=== PATIENT | male | born 1995 | race Caucasian/White ===

== ENCOUNTER 2016-12-31 18:20 | Emergency (ER) | payer BC ==
[2016-12-31 18:45] VITALS: RESP 18
[2016-12-31] MEDS ORDERED: ONDANSETRON 4 MG/2 ML VIAL IVP STA (18:49)
[2016-12-31] MEDS ORDERED: SODIUM CHLORIDE 0.9% 1,000 ML IV STA (18:49)
[2016-12-31] MEDS ORDERED: MECLIZINE 12.5 MG TAB PO STA (18:49)
--- NOTE | 2016-12-31 18:54 | ED ---
Dizziness HPI - General Chief Complaint: Dizziness Stated Complaint: bloody nose/blurred vision/high blood pressure Time Seen by Provider: 12/31/16 18:44 Source: patient, RN notes reviewed Mode of arrival: ambulatory Limitations: no limitations - History of Present Illness Initial Comments: This is a 21-year-old male presents emergency Department with chief complaint of dizziness and lightheadedness with standing at work today. Patient reports that he will drink 8 beers last night. Patient reports that he did go to work today at 4 p.m. and was standing in front of the fryer and he started to feel lightheaded and dizzy. Patient reports that his her had this happen before. He states he is trying to stay hydrated today and drink plenty of water. Patient states that earlier in the day he did have a bloody nose and is feeling he's had some blurring vision. Patient proceeded did not feel anxious at the time of this is occurring. She reports the symptoms started approximately an hour and a half ago. Patient denies any recent fever, chills, chest pain, back pain, abdominal pain, nausea vomiting, numbness or tingling, dysuria or hematuria, constipation or diarrhea, headaches, or any other current symptoms - Related Data Home Medications Medication Instructions Recorded Confirmed No Known Home Medications [No 11/15/15 12/31/16 Known Home Medications] Allergies Allergy/AdvReac Type Severity Reaction Status Date / Time Sulfa (Sulfonamide Allergy Rash/Hives Verified 12/31/16 18:41 Antibiotics) Review of Systems ROS Statement: Those systems with pertinent positive or pertinent negative responses have been documented in the HPI. ROS Other: All systems not noted in ROS Statement are negative. Past Medical History Past Medical History: No Reported History History of Any Multi-Drug Resistant Organisms: None Reported Past Surgical History: No Surgical Hx Reported Past Psychological History: No Psychological Hx Reported Smoking Status: Current every day smoker Past Alcohol Use History: Heavy Past Drug Use History: Marijuana General Exam - General Exam Comments Initial Comments: Well-appearing 21-year-old male. No distress. Limitations: no limitations General appearance: alert, in no apparent distress Head exam: Present: atraumatic, normocephalic, normal inspection Eye exam: Present: normal appearance, PERRL, EOMI. Absent: scleral icterus, conjunctival injection, periorbital swelling ENT exam: Present: normal exam, mucous membranes moist Neck exam: Present: normal inspection. Absent: tenderness, meningismus, lymphadenopathy Respiratory exam: Present: normal lung sounds bilaterally. Absent: respiratory distress, wheezes, rales, rhonchi, stridor Cardiovascular Exam: Present: regular rate, normal rhythm, normal heart sounds. Absent: systolic murmur, diastolic murmur, rubs, gallop, clicks GI/Abdominal exam: Present: soft, normal bowel sounds. Absent: distended, tenderness, guarding, rebound, rigid Extremities exam: Present: normal inspection, full ROM, normal capillary refill. Absent: tenderness, pedal edema, joint swelling, calf tenderness Back exam: Present: normal inspection Neurological exam: Present: alert, oriented X3, CN II-XII intact Psychiatric exam: Present: normal affect, normal mood Skin exam: Present: warm, dry, intact, normal color. Absent: rash Course Vital Signs 12/31/16 12/31/16 18:41 20:24 Temperature 99.3 F 98.3 F Pulse Rate 100 78 Respiratory 18 18 Rate Blood Pressure 143/95 146/77 O2 Sat by Pulse 96 98 Oximetry Medical Decision Making - Medical Decision Making This is a 21-year-old male presents emergency Department with chief complaint of dizziness and lightheadedness with standing at work today. Patient reports that he will drink 8 beers last night. Patient reports that he did go to work today at 4 p.m. and was standing in front of the fryer and he started to feel lightheaded and dizzy. Patient reports that his her had this happen before. He states he is trying to stay hydrated today and drink plenty of water. Patient states that earlier in the day he did have a bloody nose and is feeling he's had some blurring vision. Patient proceeded did not feel anxious at the time of this is occurring. Patient is alert was reviewed and negative for any acute process. Patient received 2 L of fluids. Patient chest x-ray is also negative. EKG is also negative. Patient is reevaluated states that he feels much better after receiving some fluids. Patient reports that he plans to follow-up with primary care provider. Discussed that he needs to have the day off. Patient understand treatment plan will comply. - Lab Data Result diagrams: 12/31/16 18:58 12/31/16 18:58 Lab Results 0612/31/16 12/31/16 Range/Units 18:58 18:58 18:58 WBC 8.3 (3.8-10.6) k/uL RBC 5.20 (4.30-5.90) m/uL Hgb 16.0 (13.0-17.5) gm/dL Hct 47.5 (39.0-53.0) % MCV 91.2 (80.0-100.0) fL MCH 30.7 (25.0-35.0) pg MCHC 33.7 (31.0-37.0) g/dL RDW 13.3 (11.5-15.5) % Plt Count 274 (150-450) k/uL Neutrophils % 61 % Lymphocytes % 28 % Monocytes % 5 % Eosinophils % 2 % Basophils % 2 % Neutrophils # 5.0 (1.3-7.7) k/uL Lymphocytes # 2.3 (1.0-4.8) k/uL Monocytes # 0.4 (0-1.0) k/uL Eosinophils # 0.2 (0-0.7) k/uL Basophils # 0.2 (0-0.2) k/uL Sodium 141 (137-145) mmol/L Potassium 3.9 (3.5-5.1) mmol/L Chloride 104 (98-107) mmol/L Carbon Dioxide 21 L (22-30) mmol/L Anion Gap 16 mmol/L BUN 6 L (9-20) mg/dL Creatinine 0.71 (0.66-1.25) mg/dL Est GFR (MDRD) Af Amer >60 (>60 ml/min/1.73 sqM) Est GFR (MDRD) Non-Af >60 (>60 ml/min/1.73 sqM) Glucose 95 (74-99) mg/dL Calcium 9.9 (8.4-10.2) mg/dL Total Bilirubin 0.9 (0.2-1.3) mg/dL AST 28 (17-59) U/L ALT 29 (21-72) U/L Alkaline Phosphatase 75 (38-126) U/L Troponin I <0.012 (0.000-0.034) ng/mL Total Protein 7.7 (6.3-8.2) g/dL Albumin 5.0 (3.5-5.0) g/dL Urine Color Urine Appearance (Clear) Urine pH (5.0-8.0) Ur Specific [place] (1.001-1.035) Urine Protein (Negative) Urine Glucose (UA) (Negative) Urine Ketones (Negative) Urine Blood (Negative) Urine Nitrite (Negative) Urine Bilirubin (Negative) Urine Urobilinogen (<2.0) mg/dL Ur Leukocyte Esterase (Negative) Urine RBC (0-5) /hpf Urine WBC (0-5) /hpf Urine Mucus (None) /hpf Urine Opiates Screen (NotDetected) Ur Oxycodone Screen (NotDetected) Urine Methadone Screen (NotDetected) Ur Propoxyphene Screen (NotDetected) Ur Barbiturates Screen (NotDetected) U Tricyclic Antidepress (NotDetected) Ur Phencyclidine Scrn (NotDetected) Ur Amphetamines Screen (NotDetected) U Methamphetamines Scrn (NotDetected) U Benzodiazepines Scrn (NotDetected) Urine Cocaine Screen (NotDetected) U Marijuana (THC) Screen (NotDetected) 12/31/16 Range/Units 18:58 WBC (3.8-10.6) k/uL RBC (4.30-5.90) m/uL Hgb (13.0-17.5) gm/dL Hct (39.0-53.0) % MCV (80.0-100.0) fL MCH (25.0-35.0) pg MCHC (31.0-37.0) g/dL RDW (11.5-15.5) % Plt Count (150-450) k/uL Neutrophils % % Lymphocytes % % Monocytes % % Eosinophils % % Basophils % % Neutrophils # (1.3-7.7) k/uL Lymphocytes # (1.0-4.8) k/uL Monocytes # (0-1.0) k/uL Eosinophils # (0-0.7) k/uL Basophils # (0-0.2) k/uL Sodium (137-145) mmol/L Potassium (3.5-5.1) mmol/L Chloride (98-107) mmol/L Carbon Dioxide (22-30) mmol/L Anion Gap mmol/L BUN (9-20) mg/dL Creatinine (0.66-1.25) mg/dL Est GFR (MDRD) Af Amer (>60 ml/min/1.73 sqM) Est GFR (MDRD) Non-Af (>60 ml/min/1.73 sqM) Glucose (74-99) mg/dL Calcium (8.4-10.2) mg/dL Total Bilirubin (0.2-1.3) mg/dL AST (17-59) U/L ALT (21-72) U/L Alkaline Phosphatase (38-126) U/L Troponin I (0.000-0.034) ng/mL Total Protein (6.3-8.2) g/dL Albumin (3.5-5.0) g/dL Urine Color Yellow Urine Appearance Clear (Clear) Urine pH 6.0 (5.0-8.0) Ur Specific [place] 1.015 (1.001-1.035) Urine Protein 1+ H (Negative) Urine Glucose (UA) Negative (Negative) Urine Ketones 1+ H (Negative) Urine Blood Small H (Negative) Urine Nitrite Negative (Negative) Urine Bilirubin Negative (Negative) Urine Urobilinogen <2.0 (<2.0) mg/dL Ur Leukocyte Esterase Negative (Negative) Urine RBC 5 (0-5) /hpf Urine WBC 1 (0-5) /hpf Urine Mucus Rare H (None) /hpf Urine Opiates Screen Not Detected (NotDetected) Ur Oxycodone Screen Not Detected (NotDetected) Urine Methadone Screen Not Detected (NotDetected) Ur Propoxyphene Screen Not Detected (NotDetected) Ur Barbiturates Screen Not Detected (NotDetected) U Tricyclic Antidepress Not Detected (NotDetected) Ur Phencyclidine Scrn Not Detected (NotDetected) Ur Amphetamines Screen Not Detected (NotDetected) U Methamphetamines Scrn Not Detected (NotDetected) U Benzodiazepines Scrn Not Detected (NotDetected) Urine Cocaine Screen Not Detected (NotDetected) U Marijuana (THC) Screen Detected H (NotDetected) 12/31/16 19:24 EKG shows normal sinus rhythm with possible sinus arrhythmia. Hematuria by 3 bpm. : 50 mg. QRS duration 84. QT QTc is 3:30/450. No evidence of significant T- wave inversion. - Radiology Data Radiology results: report reviewed Chest x-rays be negative for any acute process. Disposition Clinical Impression: Light-headed feeling Disposition: HOME SELF-CARE Condition: Good Instructions: Dizziness (ED) Additional Instructions: Rest, increase fluids. Follow-up with her primary care physician. Return to the emergency department if any alarming signs or symptoms occur. Referrals: Quinton Escalante III, MD [Primary Care Provider] - 1-2 days Time of Disposition: 20:14
[2016-12-31 19:14] LABS: Basophils # (A) 0.2 k/uL (0-0.2); Basophils % (A) 2 %; CH 30.8; CHCM 33.8; Eosinophils # (A) 0.2 k/uL (0-0.7); Eosinophils % (A) 2 %; HCT 47.5 % (39.0-53.0); HDW 2.13; Luc % (Auto) 2; Lymphocytes # (A) 2.3 k/uL (1.0-4.8); Lymphocytes % (A) 28 %; MCH 30.7 pg (25.0-35.0); MCHC 33.7 g/dL (31.0-37.0); MCV 91.2 fL (80.0-100.0); Mean Platelet Volume 7.1; Monocytes # (A) 0.4 k/uL (0-1.0); Monocytes % (A) 5 %; Neutrophils % (A) 61 %; RDW 13.3 % (11.5-15.5); WBC 8.3 k/uL (3.8-10.6); WBC (Perox) 8.08
[2016-12-31 19:23] LABS: Appearance,Urine Clear (Clear); Bilirubin,Urine Negative (Negative); Glucose,Urine (UA) Negative (Negative); Ketones,Urine 1+ (Negative); Leukocyte Esterase,Urine Negative (Negative); Mucus,Urine Rare /hpf; Nitrite,Urine Negative (Negative); Particle Count 2939; Protein,Urine 1+ (Negative); RBC,Urine 5 /hpf (0-5); Specific Gravity,Urine 1.015 (1.001-1.035); UA Billing (MACRO vs. MICRO) MICRO; Urobilinogen,Urine <2.0 mg/dL (<2.0); WBC,Urine 1 /hpf (0-5)
[2016-12-31 19:24] LABS: ALT 29 U/L (21-72); AST 28 U/L (17-59); Alkaline Phosphatase 75 U/L (38-126); Anion Gap 16 mmol/L; Blood Urea Nitrogen 6 mg/dL (9-20); Calcium 9.9 mg/dL (8.4-10.2); Carbon Dioxide 21 mmol/L (22-30); Chloride 104 mmol/L (98-107); Glucose 95 mg/dL (74-99); Non-African American GFR(MDRD) >60 (>60 ml/min/1.73 sqM); Potassium 3.9 mmol/L (3.5-5.1); Sodium 141 mmol/L (137-145); Total Bilirubin 0.9 mg/dL (0.2-1.3); Total Protein 7.7 g/dL (6.3-8.2)
--- NOTE | 2016-12-31 19:25 | XR ---
EXAMINATION TYPE: XR chest 2V DATE OF EXAM: 12/31/2016 7:21 PM COMPARISON: NONE HISTORY: Dizziness TECHNIQUE: Frontal and lateral views of the chest are obtained. FINDINGS: Heart and mediastinum are normal. Lungs are clear. Diaphragm is normal. Bony thorax appear s normal. IMPRESSION: Normal chest
[2016-12-31 20:26] VITALS: BP 146/77; PULSE 78; TEMP 98.3
== END 2016-12-31 20:24 | disposition home or self-care (01) ==
LOC: EC 18:20
DX: R42 Dizziness and giddiness (principal); H53.8 Other visual disturbances; R04.0 Epistaxis; F17.200 Nicotine dependence, unspecified, uncomplicated; Z88.2 Allergy status to sulfonamides; Z53.20 Procedure and treatment not carried out because of patient's decision for unspecified reasons
CPT/HCPCS: 36415; 71020; 80053; 80306; 81001; 84484; 85025; 93005; 96360; 99284

== ENCOUNTER 2017-01-21 14:39 | Inpatient (IN) | payer BC ==
[2017-01-21] MEDS ORDERED: FOLIC ACID 1 MG TAB PO STA (15:03)
[2017-01-21] MEDS ORDERED: THIAMINE 100 MG/ML 2 ML VIAL IM STA ×2 (15:03→17:30)
[2017-01-21] MEDS ORDERED: MULTIVITAMINS, THERA 1 EACH TAB PO STA (15:03)
[2017-01-21] MEDS ORDERED: SODIUM CHLORIDE 0.9% 1,000 ML IV STA ×2 (15:03)
[2017-01-21] MEDS ORDERED: DIAZEPAM 5 MG TAB PO STA ×2 (15:10→16:15)
[2017-01-21 15:29] LABS: Basophils # (A) 0.2 k/uL (0-0.2); Basophils % (A) 1 %; CH 30.6; CHCM 33.3; Eosinophils # (A) 0.1 k/uL (0-0.7); Eosinophils % (A) 1 %; HCT 49.3 % (39.0-53.0); HDW 2.09; HGB 16.1 gm/dL (13.0-17.5); Luc # (Auto) 0.31; Luc % (Auto) 3; Lymphocytes # (A) 2.3 k/uL (1.0-4.8); Lymphocytes % (A) 21 %; MCH 30.2 pg (25.0-35.0); MCHC 32.7 g/dL (31.0-37.0); MCV 92.3 fL (80.0-100.0); Mean Platelet Volume 7.3; Monocytes # (A) 0.7 k/uL (0-1.0); Monocytes % (A) 6 %; Neutrophils # (A) 7.4 k/uL (1.3-7.7); Neutrophils % (A) 67 %; RBC 5.34 m/uL (4.30-5.90); RDW 13.1 % (11.5-15.5); WBC (Perox) 10.25
[2017-01-21 15:39] LABS: ALT 23 U/L (21-72); AST 30 U/L (17-59); Alkaline Phosphatase 107 U/L (38-126); Amylase 54 U/L (30-110); Anion Gap 21 mmol/L; Blood Urea Nitrogen 10 mg/dL (9-20); Calcium 9.8 mg/dL (8.4-10.2); Carbon Dioxide 19 mmol/L (22-30); Chloride 101 mmol/L (98-107); Glucose 87 mg/dL (74-99); Non-African American GFR(MDRD) >60 (>60 ml/min/1.73 sqM); Potassium 3.7 mmol/L (3.5-5.1); Sodium 141 mmol/L (137-145); Total Bilirubin 0.8 mg/dL (0.2-1.3); Total Protein 8.4 g/dL (6.3-8.2)
[2017-01-21] MEDS ORDERED: LORazepam 2 MG/ML SYRINGE IV PRN ×2 (17:30)
--- NOTE | 2017-01-21 17:30 | ED ---
Alcohol HPI - General Chief Complaint: Alcohol Stated Complaint: alcohol withdrawal/sent by [facility] Time Seen by Provider: 01/21/17 14:52 Source: patient Mode of arrival: ambulatory Limitations: no limitations - History of Present Illness Initial Comments: ) Drinking quite heavily for the last month and a half he was seen by at a urgent care this HEART rate was quite fast and respiratory rate was fast and thought he was sent withdrawals presented to the ER in year. Bedside he been drinking about a pint to 2 pints every day or if he has a day for the last month and is quite shaky hasn't had any alcohol for the last 12 hours him a no other complaints. He does have a bit of a rash on his lower extremities. - Related Data Home Medications Medication Instructions Recorded Confirmed No Known Home Medications [No 11/15/15 01/21/17 Known Home Medications] Allergies Allergy/AdvReac Type Severity Reaction Status Date / Time Sulfa (Sulfonamide Allergy Rash/Hives Verified 01/21/17 15:17 Antibiotics) Review of Systems ROS Statement: Those systems with pertinent positive or pertinent negative responses have been documented in the HPI. ROS Other: All systems not noted in ROS Statement are negative. Past Medical History Past Medical History: No Reported History History of Any Multi-Drug Resistant Organisms: None Reported Past Surgical History: No Surgical Hx Reported Past Psychological History: No Psychological Hx Reported Smoking Status: Current every day smoker Past Alcohol Use History: Abuse, Daily, Heavy Past Drug Use History: Cocaine, Marijuana General Exam - General Exam Comments Initial Comments: General: The patient is awake and alert, in no distress, and does not appear acutely ill. GCS 15. He does look bit shaky Skin: Skin is warm and dry noticed a rash on his legs, its warm 0.5-1 mm in size some areas is bit raised and is bit erythematous Eye: Pupils are equal, round and reactive to light, extra-ocular movements are intact; there is normal conjunctiva bilaterally. Ears, nose, mouth and throat: There are moist mucous membranes and no oral lesions. Neck: The neck is supple, there is no tenderness or JVD. Cardiovascular: There is a regular rate and rhythm. No murmur, rub or gallop is appreciated. Respiratory: To auscultation bilateral, no wheezing no rhonchi no distress respiratory rivas noticed Gastrointestinal: Soft, non-distended, non-tender abdomen without masses or organomegaly noted. There is no rebound or guarding present. Bowel sounds are unremarkable. Back: There is no tenderness to palpation in the midline. There is no obvious deformity. Musculoskeletal: Normal ROM, no tenderness, There is no pedal edema. There is no calf tenderness or swelling. No cords were appreciated. Neurological: CN II-XII intact, Cranial nerves III through XII are intact. There are no obvious motor or sensory deficits. Coordination appears grossly intact. Speech is normal. Psychiatric: Cooperative, appropriate mood & affect, normal judgment. Denies any suicidal or homicidal ideation Limitations: no limitations Course Vital Signs 01/21/17 01/21/17 01/21/17 14:42 15:10 15:32 Pulse Rate 130 H 135 H 113 H Respiratory 20 20 Rate Blood Pressure 162/94 154/88 O2 Sat by Pulse 99 98 Oximetry 01/21/17 16:10 Pulse Rate 103 H Respiratory 20 Rate Blood Pressure 137/76 O2 Sat by Pulse 99 Oximetry Patient was reassessed at 1525 and his labs were discussed with him as well as his mother considering his tachycardia he was advised to stay in the hospital to avoid any chest education and counseling was done about the patient is swollen Medical Decision Making - Lab Data Result diagrams: 01/21/17 15:05 01/21/17 15:05 Lab Results 01/21/17 01/21/17 01/21/17 Range/Units 15:05 15:05 16:00 WBC 11.0 H (3.8-10.6) k/uL RBC 5.34 (4.30-5.90) m/uL Hgb 16.1 (13.0-17.5) gm/dL Hct 49.3 (39.0-53.0) % MCV 92.3 (80.0-100.0) fL MCH 30.2 (25.0-35.0) pg MCHC 32.7 (31.0-37.0) g/dL RDW 13.1 (11.5-15.5) % Plt Count 296 (150-450) k/uL Neutrophils % 67 % Lymphocytes % 21 % Monocytes % 6 % Eosinophils % 1 % Basophils % 1 % Neutrophils # 7.4 (1.3-7.7) k/uL Lymphocytes # 2.3 (1.0-4.8) k/uL Monocytes # 0.7 (0-1.0) k/uL Eosinophils # 0.1 (0-0.7) k/uL Basophils # 0.2 (0-0.2) k/uL Sodium 141 (137-145) mmol/L Potassium 3.7 (3.5-5.1) mmol/L Chloride 101 (98-107) mmol/L Carbon Dioxide 19 L (22-30) mmol/L Anion Gap 21 mmol/L BUN 10 (9-20) mg/dL Creatinine 0.77 (0.66-1.25) mg/dL Est GFR (MDRD) Af Amer >60 (>60 ml/min/1.73 sqM) Est GFR (MDRD) Non-Af >60 (>60 ml/min/1.73 sqM) Glucose 87 (74-99) mg/dL Calcium 9.8 (8.4-10.2) mg/dL Total Bilirubin 0.8 (0.2-1.3) mg/dL AST 30 (17-59) U/L ALT 23 (21-72) U/L Alkaline Phosphatase 107 (38-126) U/L Total Protein 8.4 H (6.3-8.2) g/dL Albumin 5.4 H (3.5-5.0) g/dL Amylase 54 (30-110) U/L Lipase 88 (23-300) U/L Urine Opiates Screen Not Detected (NotDetected) Ur Oxycodone Screen Not Detected (NotDetected) Urine Methadone Screen Not Detected (NotDetected) Ur Propoxyphene Screen Not Detected (NotDetected) Ur Barbiturates Screen Not Detected (NotDetected) U Tricyclic Antidepress Not Detected (NotDetected) Ur Phencyclidine Scrn Not Detected (NotDetected) Ur Amphetamines Screen Not Detected (NotDetected) U Methamphetamines Scrn Not Detected (NotDetected) U Benzodiazepines Scrn Detected H (NotDetected) Urine Cocaine Screen Not Detected (NotDetected) U Marijuana (THC) Screen Detected H (NotDetected) Disposition Clinical Impression: Alcohol withdrawal Disposition: ADMITTED IP TO THIS [facility] Condition: Good Referrals: Jeet King MD [Primary Care Provider] - 1-2 days
[2017-01-21] MEDS ORDERED: SODIUM CHLORIDE 0.9% 1,000 ML IV ONE (17:31)
[2017-01-21] MEDS: LORazepam 2 MG/ML SYRINGE IV PRN ×2 (18:19→22:03)
[2017-01-21] MEDS: THIAMINE 100 MG TAB PO SCH (19:03)
[2017-01-21] MEDS: NICOTINE 21MG/24HR PATCH TRANSDERM SCH (20:33)
[2017-01-21] MEDS: ACETAMINOPHEN TAB 325 MG TAB PO PRN (21:10)
[2017-01-22] MEDS: ACETAMINOPHEN TAB 325 MG TAB PO PRN ×2 (05:11→13:29)
[2017-01-22] MEDS: NICOTINE 21MG/24HR PATCH TRANSDERM SCH (09:20)
[2017-01-22] MEDS: THIAMINE 100 MG TAB PO SCH ×2 (13:29→16:55)
[2017-01-22] MEDS ORDERED: ALPRAZolam 0.25 MG TAB PO PRN (15:17)
[2017-01-22] MEDS ORDERED: TEMAZEPAM 15 MG CAP PO PRN (15:17)
--- NOTE | 2017-01-22 18:22 | XR ---
EXAMINATION TYPE: XR chest 1V portable DATE OF EXAM: 01/22/2017 COMPARISON: 12/31/2016 HISTORY: Pneumonia chest pain TECHNIQUE: Single frontal view of the chest is obtained. FINDINGS: Heart and mediastinum are normal. Lungs are clear. Diaphragm is normal. There are chest le ads. IMPRESSION: Normal chest. No change.
[2017-01-22] MEDS: HEPARIN SODIUM,PORCINE 5,000 UNIT/ML 1 ML VIAL SQ SCH (22:45)
[2017-01-22 23:26] VITALS: RESP 16
--- NOTE | 2017-01-23 07:04 | HP ---
DATE OF ADMISSION: I am covering for Dr. King. CHIEF COMPLAINT: Alcohol withdrawal seizures. HISTORY OF PRESENT ILLNESS: This 21-year-old gentleman with a past history of EtOH abuse, previous history of cocaine and marijuana abuse being followed by Dr. King in the outpatient setting. Apparently went to rehab previously, but subsequently the patient relapsed and was severely drinking up to 2 pints and presented urgent care center with tachycardia and tachypnea. Patient was sent over to [facility] for further evaluation. The patient was started on alcohol withdrawal protocol and patient is closely monitored. There is no history of any fever, rigors. No history of headache, loss of consciousness or seizures. PAST MEDICAL HISTORY: History of EtOH, history of cocaine and marijuana. Medications prior to admission include medications: None. ALLERGIES: SULFA. FAMILY HISTORY: No history of any heart disease or strokes in the family. SOCIAL HISTORY: As mentioned earlier. REVIEW OF SYSTEMS: ENT: No diminishing hearing. No diminished vision. CARDIOVASCULAR: As mentioned earlier. RESPIRATORY: As mentioned earlier. GI: No nausea. : No dysuria. NERVOUS SYSTEM: No numbness or weakness. ALLERGY/IMMUNOLOGY: No history of asthma. MUSCULOSKELETAL: As mentioned earlier. HEMATOLOGY/ONCOLOGY: No history of anemia. ENDOCRINE: No history of diabetes mellitus or hypothyroidism. CONSTITUTIONAL: As mentioned earlier. DERMATOLOGY: Negative. RHEUMATOLOGY: Negative. PSYCHIATRY: As mentioned earlier. PHYSICAL EXAMINATION: The patient is alert and oriented x3. Pulse is 73, blood pressure 151/89, respirations 16, temperature 97.4, pulse ox 99% on room air. HEENT: Conjunctivae normal. NECK: No jugular venous distention. CARDIOVASCULAR: S1 and S2, muffled. RESPIRATORY: Breath sounds diminished at the bases. No rhonchi, no crackles. ABDOMEN: Soft, nontender. No mass palpable. LEGS: No edema, no swelling. NERVOUS SYSTEM: Higher function as mentioned. Moves all 4 limbs. LYMPHATICS: No lymphadenopathy of neck, axillae or groin. SKIN: No ulcers, rashes or bleeding. LABS: WBC 11, hemoglobin 16.1. Albumin is 5.4. ASSESSMENT: 1. Alcohol withdrawal syndrome and early delirium tremens. 2. History of EtOH. 3. History of polysubstance abuse including marijuana and as well as cocaine. 4. Decreased CO2. 5. Increased WBC. RECOMMENDATIONS AND DISCUSSION: This 21-year-old gentleman presented with multiple complex medical problems, will monitor the patient closely. Continue the current medications, CIWA protocol. Continue with vitamin supplementation. The patient will require alcohol and substance abuse counseling and rehabilitation and outpatient followup with psychiatry also. The prognosis is guarded. Further recommendations to follow. KELD
[2017-01-23] MEDS ORDERED: PANTOPRAZOLE 40 MG TABLET PO SCH (07:30)
[2017-01-23 07:32] LABS: Basophils # (A) 0.1 k/uL (0-0.2); Basophils % (A) 1 %; CH 30.6; CHCM 32.9; Eosinophils # (A) 0.2 k/uL (0-0.7); Eosinophils % (A) 4 %; HCT 51.8 % (39.0-53.0); HDW 2.05; HGB 16.5 gm/dL (13.0-17.5); Luc # (Auto) 0.13; Luc % (Auto) 2; Lymphocytes # (A) 1.9 k/uL (1.0-4.8); Lymphocytes % (A) 35 %; MCH 29.7 pg (25.0-35.0); MCHC 31.9 g/dL (31.0-37.0); MCV 93.2 fL (80.0-100.0); Mean Platelet Volume 7.5; Monocytes # (A) 0.4 k/uL (0-1.0); Monocytes % (A) 7 %; Neutrophils # (A) 2.7 k/uL (1.3-7.7); Neutrophils % (A) 50 %; RBC 5.56 m/uL (4.30-5.90); RDW 12.8 % (11.5-15.5); WBC 5.4 k/uL (3.8-10.6); WBC (Perox) 5.12
[2017-01-23 07:54] LABS: Anion Gap 14 mmol/L; Blood Urea Nitrogen 6 mg/dL (9-20); Calcium 10.2 mg/dL (8.4-10.2); Carbon Dioxide 25 mmol/L (22-30); Chloride 101 mmol/L (98-107); Glucose 94 mg/dL (74-99); Non-African American GFR(MDRD) >60 (>60 ml/min/1.73 sqM); Potassium 4.1 mmol/L (3.5-5.1); Sodium 140 mmol/L (137-145)
[2017-01-23 07:59] VITALS: BP 125/78; PULSE 60; TEMP 96.3
[2017-01-23] MEDS: HEPARIN SODIUM,PORCINE 5,000 UNIT/ML 1 ML VIAL SQ SCH (08:16)
[2017-01-23] MEDS: NICOTINE 21MG/24HR PATCH TRANSDERM SCH (08:16)
[2017-01-23] MEDS: ACETAMINOPHEN TAB 325 MG TAB PO PRN (08:22)
[2017-01-23] MEDS: LORazepam 2 MG/ML SYRINGE IV PRN (11:24)
[2017-01-23] MEDS: THIAMINE 100 MG TAB PO SCH (11:25)
[2017-01-23] MEDS ORDERED: FOLIC ACID 1 MG TAB PO SCH (12:00)
[2017-01-23] MEDS ORDERED: MULTIVITAMINS, THERA 1 EACH TAB PO SCH (12:00)
== END 2017-01-23 12:51 | disposition home or self-care (01) | DRG 897 ==
LOC: EC 14:39 → 4MS4W 17:31
PROVIDERS: ADMIT Family Medicine; ATTEND Family Medicine
DX: F10.231 Alcohol dependence with withdrawal delirium (principal); F14.10 Cocaine abuse, uncomplicated; R56.9 Unspecified convulsions; Z88.2 Allergy status to sulfonamides
CPT/HCPCS: 36415; 71010; 80048; 80053; 80306; 82075; 82150; 83690; 85025; 96361; 96372; 96374; 99285

== ENCOUNTER → 2018-01-17 | Outpatient (CLI) | payer BC | END | disposition home or self-care (01) | LOC: RADECHMAIN 12:30 | PROVIDERS: ATTEND Family Medicine | DX: I47.1 Supraventricular tachycardia (principal); I49.8 Other specified cardiac arrhythmias | CPT/HCPCS: 93225; 93226 ==

== ENCOUNTER 2020-09-03 07:43 | Emergency (ER) | payer BC, OTHER ==
[2020-09-03 07:50] VITALS: RESP 18; TEMP 98.7
[2020-09-03] MEDS ORDERED: FAMOTIDINE 20 MG/2 ML VIAL IV STA (07:57)
[2020-09-03] MEDS ORDERED: SODIUM CHLORIDE 0.9% 1,000 ML IV STA (07:57)
[2020-09-03] MEDS ORDERED: methylPREDNISolone SOD SUCCI 125 MG/2 ML VIAL IV STA (07:57)
[2020-09-03] MEDS ORDERED: diphenhydrAMINE 50 MG/ML 1 ML VIAL IVP STA (07:57)
--- NOTE | 2020-09-03 08:02 | ED ---
Allergic Reaction HPI - General Chief complaint: Allergic Reaction Stated complaint: Allergic Reaction Time Seen by Provider: 09/03/20 07:51 Source: patient, RN notes reviewed Mode of arrival: ambulatory Limitations: no limitations - History of Present Illness Initial Comments: She is a 24-year-old male that presented to the emergency department with his girlfriend complaining of an ALLERGIC reaction. He noted that he recently just got to rehab for alcohol yesterday. He did not that when he was in rehab he was using some cheap [employer] so the last day or 2. After using the soap is when he noticed that his groin broke out in hives became itchy puffy. Since yesterday his hands ears have also become red, itchy. He noted that is not so much as painful as it is more uncomfortable with a severe age. He said the reason he came is because it is been spreading proximally. He denied any other contact with any abnormal substance such as laundry detergent body wash environmental other than the soap he used in rehab. He denied any shortness of breath, chest pain, lightheadedness, nausea, vomiting, consultation, diarrhea, fever, fatigue, chills. - Related Data Previous Rx's Medication Instructions Recorded Folic Acid 1 mg PO DAILY@1200 #30 tab 01/23/17 LORazepam [Ativan] 0.5 mg PO TID PRN #20 tab 01/23/17 Multivitamins, Thera [Multivitamin 1 each PO DAILY@1200 #30 tab 01/23/17 (formulary)] Nicotine 21Mg/24Hr Patch [Habitrol] 1 patch TRANSDERM DAILY #30 patch 01/23/17 Thiamine [Vitamin B-1] 100 mg PO DAILY #30 tab 01/23/17 Famotidine [Pepcid] 20 mg PO DAILY 14 Days #14 tablet 09/03/20 Hydrocortisone Cream 1 applic TOPICAL BID 14 Days #120 09/03/20 [Hydrocortisone 2.5% Cream] gm diphenhydrAMINE [Benadryl] 25 mg PO QID 14 Days #56 capsule 09/03/20 Allergies Allergy/AdvReac Type Severity Reaction Status Date / Time Sulfa (Sulfonamide Allergy Rash/Hives Verified 09/03/20 07:44 Antibiotics) Review of Systems ROS Statement: Those systems with pertinent positive or pertinent negative responses have been documented in the HPI. ROS Other: All systems not noted in ROS Statement are negative. Past Medical History Past Medical History: GERD/Reflux History of Any Multi-Drug Resistant Organisms: None Reported Past Surgical History: No Surgical Hx Reported Past Anesthesia/Blood Transfusion Reactions: No Reported Reaction Past Psychological History: No Psychological Hx Reported Smoking Status: Current every day smoker Past Alcohol Use History: None Reported, Abuse, Daily, Heavy Past Drug Use History: Cocaine, Marijuana - Past Family History Mother Family Medical History: No Reported History General Exam Limitations: no limitations General appearance: alert, in no apparent distress Head exam: Present: atraumatic, normocephalic, normal inspection Eye exam: Present: normal appearance, PERRL, EOMI. Absent: scleral icterus, conjunctival injection, periorbital swelling ENT exam: Present: normal exam, mucous membranes moist Neck exam: Present: normal inspection. Absent: tenderness, meningismus, lymphadenopathy Respiratory exam: Present: normal lung sounds bilaterally. Absent: respiratory distress, wheezes, rales, rhonchi, stridor Cardiovascular Exam: Present: regular rate, normal rhythm, normal heart sounds. Absent: systolic murmur, diastolic murmur, rubs, gallop, clicks GI/Abdominal exam: Present: soft, normal bowel sounds. Absent: distended, tenderness, guarding, rebound, rigid Extremities exam: Present: normal inspection, full ROM, normal capillary refill. Absent: tenderness, pedal edema, joint swelling, calf tenderness Back exam: Present: normal inspection, rash noted (Urticaria upper back) Neurological exam: Present: alert, oriented X3, CN II-XII intact Psychiatric exam: Present: normal affect, normal mood Skin exam: Present: warm, dry, intact, normal color, rash (Ears: Erythema, urticaria, bilateral hands: Erythema and urticaria spreading proximally up her arms, groin: Multiple patches of urticaria down thigh to knee.) Course Vital Signs 09/03/20 07:45 Temperature 98.7 F Pulse Rate 102 H Respiratory 18 Rate Blood Pressure 128/75 O2 Sat by Pulse 98 Oximetry Medical Decision Making - Medical Decision Making 24-year-old male complaining of ALLERGIC reaction status post discharge from rehab for alcohol. Benadryl, Pepcid, methylprednisone given. Patient did not complain of any shortness of breath or chest pain. Case discussed with Dr. Ngo, was decided that patient to discharge home. Disposition Clinical Impression: Allergic reaction, Urticaria Disposition: HOME SELF-CARE Condition: Stable Instructions (If sedation given, give patient instructions): Urticaria (ED), General Allergic Reaction (ED) Additional Instructions: Please return to the Emergency Department if symptoms worsen or any other concerns. Take medications as directed Use gentle soaps and unscented soaps to wash body including clothes. Follow-up with primary care in 1-2 days. Is patient prescribed a controlled substance at d/c from ED?: No Referrals: Jeet King MD [Primary Care Provider] - 1-2 days Time of Disposition: 08:53
[2020-09-03 09:05] VITALS: BP 132/76; PULSE 98
== END 2020-09-03 09:06 | disposition home or self-care (01) ==
LOC: EC 07:43
DX: L50.0 Allergic urticaria (principal); F17.200 Nicotine dependence, unspecified, uncomplicated; Z88.2 Allergy status to sulfonamides
CPT/HCPCS: 99283; 96374; 96375 ×2; 96361; J1200; J2930

== ENCOUNTER 2020-09-06 09:12 | Emergency (ER) | payer BC ==
[2020-09-06] MEDS ORDERED: diphenhydrAMINE 50 MG/ML 1 ML VIAL IVP STA (09:29)
[2020-09-06] MEDS ORDERED: methylPREDNISolone SOD SUCCI 125 MG/2 ML VIAL IV STA (09:29)
[2020-09-06] MEDS ORDERED: FAMOTIDINE 20 MG/2 ML VIAL IV STA (09:29)
[2020-09-06] MEDS ORDERED: ACETAMINOPHEN TAB 325 MG TAB PO STA (09:30)
--- NOTE | 2020-09-06 09:45 | ED ---
General Adult HPI - General Chief complaint: Shortness of Breath Stated complaint: Revisit - allergic rxn Time Seen by Provider: 09/06/20 09:22 Source: patient, RN notes reviewed Mode of arrival: ambulatory Limitations: no limitations - History of Present Illness Initial comments: This is a 24-year-old male presents emergency Department with chief complaint ALLERGIC reaction. Patient states that seen here few days ago after having hives from soaps at [place]. Patient states he went home his return to his normal soaps and detergents states that he still having hives. He occasionally has been taking Benadryl. He was not sent home on steroids. Patient states that he sits rashes groin which is now resolved states that he has hives on his back somewhat is chest upper and lower extremities. Patient also states she's developed a recent cough, fever, blood cell to nausea vomiting with no abdominal pain. Patient has not taken any recent Tylenol Motrin. Patient states he was on trazodone wires at [place] but is not taking that medication currently. Patient states that he is taking some antiacid medications but states she's been taken this for a long period of time. - Related Data Home Medications Medication Instructions Recorded Confirmed Acetaminophen Tab [Tylenol Tab] 1,000 mg PO Q6H PRN 09/06/20 09/06/20 Famotidine [Pepcid] 20 mg PO DAILY PRN 09/06/20 09/06/20 Ibuprofen [Motrin Ib] 400 mg PO Q6H PRN 09/06/20 09/06/20 Multivitamins, Thera [Multivitamin 1 tab PO DAILY 09/06/20 09/06/20 (formulary)] Pantoprazole [Protonix] 40 mg PO DAILY PRN 09/06/20 09/06/20 diphenhydrAMINE [Benadryl] 25 - 50 mg PO QID PRN 09/06/20 09/06/20 Previous Rx's Medication Instructions Recorded Hydrocortisone Cream 1 applic TOPICAL BID 14 Days #120 09/03/20 [Hydrocortisone 2.5% Cream] gm Famotidine [Pepcid] 20 mg PO BID #14 tablet 09/06/20 diphenhydrAMINE [Benadryl] 50 mg PO QID PRN #20 capsule 09/06/20 predniSONE 50 mg PO DAILY #5 tab 09/06/20 Allergies Allergy/AdvReac Type Severity Reaction Status Date / Time Sulfa (Sulfonamide Allergy Rash/Hives Verified 09/06/20 09:46 Antibiotics) Review of Systems ROS Statement: Those systems with pertinent positive or pertinent negative responses have been documented in the HPI. ROS Other: All systems not noted in ROS Statement are negative. Past Medical History Past Medical History: GERD/Reflux History of Any Multi-Drug Resistant Organisms: None Reported Past Surgical History: No Surgical Hx Reported Past Anesthesia/Blood Transfusion Reactions: No Reported Reaction Past Psychological History: No Psychological Hx Reported Smoking Status: Current every day smoker Past Alcohol Use History: None Reported, Abuse, Daily, Heavy Past Drug Use History: Cocaine, Marijuana - Past Family History Mother Family Medical History: No Reported History General Exam Limitations: no limitations General appearance: alert, in no apparent distress Head exam: Present: atraumatic, normocephalic, normal inspection Eye exam: Present: normal appearance, PERRL, EOMI. Absent: scleral icterus, conjunctival injection, periorbital swelling ENT exam: Present: normal exam, normal oropharynx, mucous membranes moist, TM's normal bilaterally Neck exam: Present: normal inspection, full ROM. Absent: tenderness, meningismus, lymphadenopathy Respiratory exam: Present: normal lung sounds bilaterally. Absent: respiratory distress, wheezes, rales, rhonchi, stridor Cardiovascular Exam: Present: normal rhythm, tachycardia, normal heart sounds. Absent: systolic murmur, diastolic murmur, rubs, gallop, clicks GI/Abdominal exam: Present: soft, normal bowel sounds. Absent: distended, tenderness, guarding, rebound, rigid Neurological exam: Present: alert, oriented X3, CN II-XII intact Skin exam: Present: warm, dry, intact, normal color, rash, urticaria (Diffuse) Course Vital Signs 09/06/20 09/06/20 09/06/20 09:14 09:48 09:49 Temperature 99.3 F Pulse Rate 128 H 109 H Respiratory 18 14 14 Rate Blood Pressure 137/87 136/89 O2 Sat by Pulse 94 L 96 Oximetry EKG Findings - EKG Comments: EKG Findings:: EKG performed at 19:31/tachycardia rate 114 VT 142 QRS 84 QT/QTC 328/452 Medical Decision Making - Medical Decision Making Patient's urticaria is improving after Solu-Medrol Pepcid and Benadryl. Patient be discharged on prednisone for 5 days will continue Benadryl at home. Patient is in no signs of distress. Vitals have improved. - Lab Data Result diagrams: 09/06/20 09:40 09/06/20 09:40 Lab Results 09/06/20 09/06/20 09/06/20 Range/Units 09:40 09:40 09:40 WBC 16.3 H (3.8-10.6) k/uL RBC 5.24 (4.30-5.90) m/uL Hgb 15.8 (13.0-17.5) gm/dL Hct 45.8 (39.0-53.0) % MCV 87.4 (80.0-100.0) fL MCH 30.2 (25.0-35.0) pg MCHC 34.5 (31.0-37.0) g/dL RDW 12.3 (11.5-15.5) % Plt Count 336 (150-450) k/uL MPV 7.3 Neutrophils % 82 % Lymphocytes % 11 % Monocytes % 5 % Eosinophils % 1 % Basophils % 0 % Neutrophils # 13.3 H (1.3-7.7) k/uL Lymphocytes # 1.9 (1.0-4.8) k/uL Monocytes # 0.8 (0-1.0) k/uL Eosinophils # 0.2 (0-0.7) k/uL Basophils # 0.1 (0-0.2) k/uL Sodium 137 (137-145) mmol/L Potassium 3.7 (3.5-5.1) mmol/L Chloride 102 (98-107) mmol/L Carbon Dioxide 24 (22-30) mmol/L Anion Gap 11 mmol/L BUN 12 (9-20) mg/dL Creatinine 0.73 (0.66-1.25) mg/dL Est GFR (CKD-EPI)AfAm >90 (>60 ml/min/1.73 sqM) Est GFR (CKD-EPI)NonAf >90 (>60 ml/min/1.73 sqM) Glucose 116 H (74-99) mg/dL Calcium 9.5 (8.4-10.2) mg/dL Total Bilirubin 1.0 (0.2-1.3) mg/dL AST 21 (17-59) U/L ALT 26 (4-49) U/L Alkaline Phosphatase 67 (38-126) U/L Total Protein 7.0 (6.3-8.2) g/dL Albumin 4.3 (3.5-5.0) g/dL Coronavirus (PCR) Not Detected (Not Detectd) Disposition Clinical Impression: Viral illness, Allergic reaction, Urticaria Disposition: HOME SELF-CARE Condition: Stable Instructions (If sedation given, give patient instructions): Urticaria (ED) Additional Instructions: Please return to the Emergency Department if symptoms worsen or any other concerns. Prescriptions: diphenhydrAMINE [Benadryl] 50 mg PO QID PRN #20 capsule PRN Reason: ALLERGIC symptoms Famotidine [Pepcid] 20 mg PO BID #14 tablet predniSONE 50 mg PO DAILY #5 tab Is patient prescribed a controlled substance at d/c from ED?: No Referrals: Jeet King MD [Primary Care Provider] - 1-2 days Time of Disposition: 10:37
[2020-09-06 09:48] LABS: Basophils # (A) 0.1 k/uL (0-0.2); Basophils % (A) 0 %; Eosinophils # (A) 0.2 k/uL (0-0.7); Eosinophils % (A) 1 %; HCT 45.8 % (39.0-53.0); HGB 15.8 gm/dL (13.0-17.5); Lymphocytes # (A) 1.9 k/uL (1.0-4.8); Lymphocytes % (A) 11 %; MCH 30.2 pg (25.0-35.0); MCHC 34.5 g/dL (31.0-37.0); MCV 87.4 fL (80.0-100.0); Mean Platelet Volume 7.3; Monocytes # (A) 0.8 k/uL (0-1.0); Monocytes % (A) 5 %; Neutrophils # (A) 13.3 k/uL (1.3-7.7); Neutrophils % (A) 82 %; Platelet Count 336 k/uL (150-450); RBC 5.24 m/uL (4.30-5.90); RDW 12.3 % (11.5-15.5); WBC 16.3 k/uL (3.8-10.6)
[2020-09-06 09:58] LABS: ALT 26 U/L (4-49); AST 21 U/L (17-59); African American GFR (CKD) >90 (>60 ml/min/1.73 sqM); Albumin 4.3 g/dL (3.5-5.0); Alkaline Phosphatase 67 U/L (38-126); Anion Gap 11 mmol/L; Blood Urea Nitrogen 12 mg/dL (9-20); Calcium 9.5 mg/dL (8.4-10.2); Carbon Dioxide 24 mmol/L (22-30); Chloride 102 mmol/L (98-107); Glucose 116 mg/dL (74-99); Non-African American GFR(CKD) >90 (>60 ml/min/1.73 sqM); Potassium 3.7 mmol/L (3.5-5.1); Sodium 137 mmol/L (137-145)
--- NOTE | 2020-09-06 10:06 | XR ---
EXAMINATION TYPE: XR chest 2V DATE OF EXAM: 09/06/2020 COMPARISON: 01/22/2017 HISTORY: Chest pain TECHNIQUE: Frontal and lateral views of the chest are obtained. FINDINGS: There is no focal air space opacity. No evidence for pneumothorax. No pleural effusion. The cardiac silhouette size is within normal limits. The osseous structures are grossly intact. IMPRESSION: 1. No acute cardiopulmonary process.
[2020-09-06 10:24] VITALS: TEMP 99.5
[2020-09-06 10:47] VITALS: BP 130/78; PULSE 101; RESP 14
== END 2020-09-06 10:45 | disposition home or self-care (01) ==
LOC: EC 09:12
DX: B34.9 Viral infection, unspecified (principal); R00.0 Tachycardia, unspecified; T78.49XA Other allergy, initial encounter; L50.9 Urticaria, unspecified; K21.9 Gastro-esophageal reflux disease without esophagitis; F17.200 Nicotine dependence, unspecified, uncomplicated; Z88.2 Allergy status to sulfonamides
CPT/HCPCS: 36415; 93005; 80053; 85025; 86308; 87081; 87430; 71046; 87635; 99285; 96374; 96375 ×2; J1200; J2930

== ENCOUNTER 2021-02-18 11:51 | Emergency (ER) | payer BC, OTHER ==
[2021-02-18 12:06] VITALS: RESP 18
[2021-02-18] MEDS ORDERED: LIDOCAINE 5% PATCH TOPICAL STA (12:26)
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
--- NOTE | 2021-02-18 13:58 | XR ---
EXAMINATION TYPE: XR ribs LT w pa chest xray DATE OF EXAM: 02/18/2021 COMPARISON: 09/06/2020 HISTORY: Rib pain TECHNIQUE: 5 views chest and ribs FINDINGS: The lungs are clear. Cardiac silhouette is not enlarged. No displaced rib fractures. IMPRESSION: Unremarkable chest and ribs.
[2021-02-18 14:35] VITALS: BP 134/74; PULSE 70; TEMP 98.1
== END 2021-02-18 14:35 | disposition home or self-care (01) ==
LOC: EC 11:51
DX: S20.219A Contusion of unspecified front wall of thorax, initial encounter (principal); F17.200 Nicotine dependence, unspecified, uncomplicated; K21.9 Gastro-esophageal reflux disease without esophagitis; F12.90 Cannabis use, unspecified, uncomplicated; X58.XXXA Exposure to other specified factors, initial encounter
CPT/HCPCS: 93005; 99284